=== PATIENT | female | born 1960 | race Caucasian/White ===

== ENCOUNTER 2017-09-17 15:32 | Emergency (ER) | payer OTHER ==
[~2017-09-17] VITALS: Ht 162.6 cm; Wt 78.0 kg
[2017-09-17] MEDS ORDERED: EFFEXOR 5050 MG/1 T1 PO (16:03)
[2017-09-17] MEDS ORDERED: LAMICTAL200 MG PO (16:03)
[2017-09-17] MEDS ORDERED: POLYMYXIN B/TMP10 ML OPHTHALMIC (16:11)
[2017-09-17 16:17] VITALS: BP 132/82
== END 2017-09-17 16:17 | disposition home or self-care (01) ==
LOC: ER 15:32
DX: T65.891A Toxic effect of other specified substances, accidental (unintentional), initial encounter (principal); H10.213 Acute toxic conjunctivitis, bilateral; Z88.8 Allergy status to other drugs, medicaments and biological substances

== ENCOUNTER 2020-05-12 00:21 | Emergency (ER) | payer OTHER ==
[~2020-05-12] VITALS: Ht 157.5 cm; Wt 85.7 kg
[~2020-05-12 00:21] MED LIST: EFFEXOR 5050 MG/1 T1 PO; LAMICTAL200 MG PO; POLYMYXIN B/TMP10 ML OPHTHALMIC
[2020-05-12] MEDS ORDERED: BUPROPION XL300 MG PO (00:37)
[2020-05-12] MEDS ORDERED: DEPAKOTE ER250 MG PO (00:37)
[2020-05-12 03:57] VITALS: BP 109/70
== END 2020-05-12 03:58 | disposition still patient (30) ==
LOC: ER 00:21
DX: R45.851 Suicidal ideations (principal); F32.9 Major depressive disorder, single episode, unspecified; Z79.899 Other long term (current) drug therapy; Z88.8 Allergy status to other drugs, medicaments and biological substances; Z20.828 Contact with and (suspected) exposure to other viral communicable diseases

== ENCOUNTER 2020-05-12 03:36 | Inpatient (IN) | payer OTHER ==
[~2020-05-12 03:36] MED LIST changes: +BUPROPION XL300 MG PO; +DEPAKOTE ER250 MG PO
--- NOTE | 2020-05-12 06:40 | NUR ---
PT ARRIVED IN UNIT AT 0400 IN A WHEEL CHAIR ACCOMANIED BY NURSE. PT A&O X4. DENIES PAIN. VITAL SIGNS STABLE. ADMISSION ORDERS AND ASSESSMENT COMPLETED. REPORTS CURRENT SUICIDAL IDEATIONS. SEE DOC FLOW SHEET. WILL CTM
[2020-05-12 06:53] VITALS: BP 132/64
[2020-05-12 07:34] VITALS: BP 133/49
--- NOTE | 2020-05-12 17:37 | NUR ---
0700 ASSUMED CARE OF PATIENT, PATIENT IN ROOM AT THAT TIME. PATIENT OUT TO DAYROOM FOR BREAKFAST. PATIENT QUIET AND CALM AT THAT TIME. PATIENT ATE 60% OF BREAKFAST. SPORTS MEDICINE PHYSICIAN SAT WITH PATIENT, CALM AND COOPERATIVE. MEDICATION TAKEN WITHOUT DIFFICULTY. PATIENT STATES "THERE IS A LOT OF STRESSORS AND ISSUES WITH A CERTAIN PERSON. "I SHOULD HAVE CALL ONCOLOGY REGISTRAR ON THIS PERSON A LONG TIME AGO". PATIENT FEARS RETALIATION FROM THIS PERSON WILL BE WORSE THAN IT IS NOW. PATIENT DOES NOT WANT TO GET INTO FURTHER DETAILS AT THIS TIME. PATIENT DENIES SI/HI AND HALLUCINATIONS AT THAT TIME. PATIENT PRESENT AT GROUP THIS AM. NO C/O PAIN, LS CLEAR, BS ACTIVE.
[2020-05-12 19:06] VITALS: BP 115/64
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
--- NOTE | 2020-05-13 02:06 | NUR ---
Assumed care on 05/12/20 @ 19:30, in her room and ambulating throughout the mileu. Compliant with medication, taking meds whole with water. 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
[2020-05-13 16:09] VITALS: BP 115/64
--- NOTE | 2020-05-13 18:13 | NUR ---
PATIENT CARE ASSUMED AT 0700 - PLEASANT AND AGREEABLE. STATED NO S/I THOUGHTS OR SELF HARM INTENTIONS. STATED HAS BEEN GOING TO GROUPS AND ACTIVITIES - FEELS WILL HELP HER WITH HER DEPRESSION AND ANXIETY. SEEMS PLEASED ABOUT DISCHARGING ON tuesday AND COMMITTED TO MEDICATION COMPLIANCE AND OUTSIDE SUPPORT. PATIENT HAS BEEN ON AND OFF UNIT. SPENT TIME READING IN [facility] AND SLEPT - ENGAGES WITH [facility]. HAD MEETING WITH DR. GUILLAUME AND APPEARS WENT WELL. UNDERSTANDS IMPORTANCE OF MEDICATION COMPLIANCE AND OUTPATIENT FOLLOWUPS. GOOD APPETITE EATING 75% OF HER MEALS. AMBULATORY AND SELF CARE. HOPING MEDICATION WILL HELP WITH HER ANXIETY LEVEL -
[2020-05-13 19:29] VITALS: BP 121/69
--- NOTE | 2020-05-14 05:19 | NUR ---
05-13-20 CARE TRANSFERRED 1899 OBSERVED PT SITTING IN DAY ROOM WATCHING TV. PT AAOX4, VSS, RR EVEN AND NONLABORED ON RA. PT DENIES ANY PAIN AND SI/HI, BUT REPORTS SHE HAS BEEN HAVING THOUGHTS PRIOR TO ADMISSION AND HER PLAN WAS TO CUT HER JUGULAR VEIN SO SHE COULD BLEED TO . PT AGAIN DENIES SI/HI. DURING MEDICATION ADMIN PT HAD NO DIFFICULTIES. LATER PT CAME OUT AND REPORTED SHE COULD NOT SLEEP AND REQUESTED HER PRN. NOTED PT HAS BEEN RESTING, IN BED WITH EYES CLOSED.PT HAS BEEN CALM AND COOPERATIVE. ZERO S/S OF ACUTE DISTRESS, PT WILL CONTINUE TO BE MONTIOR PER [facility] PROTOCOL.
[2020-05-14 09:01] VITALS: BP 133/65
--- NOTE | 2020-05-14 11:22 | NUR ---
PATIENT IS ALERT, AND ORIENTED X 3-4, ABLE TO VOICE NEED. PATIENT HAS BEEN UP, AND OUT ON THE UNIT, PARTICIPATES IN GROUP THERAPY. PATIENT TOOK ALL MORNING MEDICATION WHOLE WITHOUT DIFFICULTY, SHE IS EATING MEALS, AND DRINKING FLUID WELL. PATIENT DENIES SUICIDAL/HOMICIDAL IDEATION, SHE RATED DEPRESSION 4/10, ANXIETY 6/10. PRN HYDROXYZINE 50MG GIVEN FOR ANXIETY, WITH POSITIVE EFFECT. ANXIETY DECREASED TO 4/10 UPON REASSESSMENT. SHE DENIES AUDITORY/VISUAL HALLUCINATION. SHE REPORTS LAST BOWEL MOVEMENT WAS THIS MORNING. PATIENT CALM, COOPERATIVE WITH CARE. SHE IS CURRENTLY IN DAYROOM DOING SOME COLORING. NO SIGN OF ACUTE DISTRESS NOTED AT THIS TIME, WILL MONITOR FOR SAFETY.
--- NOTE | 2020-05-14 11:26 | NUR ---
SAMEER contacted [facility] and scheduled appointments for both pt's psych provider Jam Chavarria and therapist Anaya Cramer; psych appointment is May.16 @9:45 am and therapy appointment is May.20 @11am. Pt's psych is in person and therapy via telepsych. SAMEER created a social work handout for pt. SAMEER gave the handout to pt and explained her appointments. SW team will continue to follow pt during her stay on this unit.
[2020-05-14 19:29] VITALS: BP 141/75
--- NOTE | 2020-05-15 01:38 | NUR ---
05-14-20 CARE TRANSFERRED 0 OBSERVED PT SITTING IN DAY ROOM COLORING. PT AAOX4, VSS, RR EVEN AND NONLABORED RA. PT DENIES SI/HI AND PAIN. PT REPORTS SHE IS LOOKING FORWARD TO GOING HOME TO FAMILY. LATER COVID19 TEST AND PT TOLERATED WELL. ZERO S/S OF ACUTE DISTRSS, PT WILL CONTINUE TO BE MONITOR PER [facility] PROTOCOL.
--- NOTE | 2020-05-15 09:08 | NUR ---
PATIENT HAS BEEN UP, AND IN ROOM THIS MORNING, HAD BREAKFAST IN ROOM APPETITE GOOD, CONSUMED 100%. PATIENT IS ALERT, AND ORIENTED X 3-4 ABLE TO VOICE NEED. PATIENT DENIES SUICIDAL/HOMICIDAL IDEATION, SHE DENIES DEPRESSION, ANXIETY RATED 2/10. PATIENT DENIES HAVING PHYSICAL PAIN, DENIES AUDITORY/VISUAL HALLUCINATION. LAST BOWEL MOVEMENT WAS ON 05/14/20 PER PATIENT REPORT. PATIENT IS EXCITED ABOUT DISCHARGE. AFFECT IS BRIGHT, MOOD IS HAPPY. NO SIGN OF ACUTE DISTRESS NOTED AT THIS TIME, WILL MONITOR FOR SAFETY.
[2020-05-15 09:10] VITALS: BP 110/56
[2020-05-15] MEDS ORDERED: DEPAKOTE ER250 MG PO (09:55)
[2020-05-15] MEDS ORDERED: EFFEXOR XR150 MG PO (09:56)
[2020-05-15] MEDS ORDERED: BUPROPION XL300 MG PO (09:56)
[2020-05-15] MEDS ORDERED: PRENATAL PO (09:57)
[2020-05-15] MEDS ORDERED: VISTARIL 25 MG25 M1 PO (09:57)
--- NOTE | 2020-05-15 10:35 | NUR ---
SAMEER D/C Note SAMEER faxed discharge documents to [facility]. No other needs for SW team to address at this time.
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
== END 2020-05-15 10:15 | disposition home or self-care (01) | DRG 885 ==
LOC: SBH 03:36
PROVIDERS: ADMIT Psychiatry & Neurology Psychiatry; ATTEND Psychiatry & Neurology Psychiatry
DX: F31.32 Bipolar disorder, current episode depressed, moderate (principal); Z20.828 Contact with and (suspected) exposure to other viral communicable diseases; Z96.653 Presence of artificial knee joint, bilateral; Z81.8 Family history of other mental and behavioral disorders; Z88.8 Allergy status to other drugs, medicaments and biological substances
CPT/HCPCS: 10880